=== PATIENT | male | born 1980 | race Caucasian/White ===

== ENCOUNTER → 2022-08-20 | Outpatient (CLI) | payer OTHER ==
--- NOTE | 2022-08-20 16:20 | P.SLEEP ---
History of Present Illness DATE: 08/20/2022 CONSULTATION/NEW PATIENT EVALUATION HISTORY OF PRESENT ILLNESS/SLEEP-WAKE EVALUATION: 42 year old gentleman had been evaluated in the sleep center for obstructive sleep apnea hypopnea syndrome. Patient had home sleep apnea test on 06/16/2022 in another institution which showed apnea-hypopnea index 70.71. SLEEP SCHEDULE: Usually sleep schedule from 4 AM until 12:30 PM on working days, patient works at afternoon shift and from 4 AM until 6 PM on days off. FALLING ASLEEP: Patient has difficulties with falling asleep, although no TV in bedroom. DURING SLEEP: Patient has loud snoring, witnessed episodes of stop breathing during the sleep, multiple awakenings with the gasping for air and choking up to 20 times per night's with up to 5 episodes of nocturia. No history of hypnogogical hallucinations, sleep paralysis, or cataplexy. DURING THE DAY/WAKE STATE: In the morning patient wake up tired, has difficulties to pay attention, falling asleep during the day. Russell sleepiness scale is 9. Usually patient doesn't take additional naps. PAST MEDICAL HISTORY: Hypertension, depression. PAST SURGICAL HISTORY: Left clavicle fracture. MEDICATIONS: Atenolol, Wellbutrin, Lexapro. SOCIAL HISTORY: Negative for smoking or using alcohol. FAMILY HISTORY: Heart problems, stroke. REVIEW OF SYSTEMS: Loud snoring, multiple awakenings from sleep. No fevers. No double vision. No recent chest pain. No shortness of breath. No abdominal pain. No bleeding episodes. No blood in urine. No seizure episodes. PHYSICAL EXAMINATION: GENERAL: A pleasant patient without any distress. VITAL SIGNS: BP 99/61 , HR 74 , RR 16 , weight 147.2 pounds, height 6 foot 2 inches, body mass index 55.8 . HEENT: PERRLA, EOMI. Evaluation of oropharynx showed tongue protrudes midline, low position of soft palate Mallampati 3. NECK: Supple. No JVD. Thyroid is not palpable. 20 inches in circumference. LUNGS: Clear to percussion and to auscultation. Good air exchange. No wheezing or rhonchi. HEART: S1, S2 regular. No murmurs, gallops or rubs. ABDOMEN: Soft and nontender. Bowel sounds are present. No organomegaly appreciated. Obese EXTREMITIES: No clubbing or cyanosis. MUSIC PASTOR: Awake, alert, and oriented x3. Cranial nerves 2 to 7 intact. There is no fasciculation or atrophy noted. No focal deficits observed. ASSESSMENT: 1. Severe obstructive sleep apnea hypopnea syndrome by results of home sleep apnea test which was done in another institution. Apnea-hypopnea index 70.71. 2. Morbid obesity, BMI 55.8. 3. History of hypertension. 4. History of depression. 5 status post the surgical treatment for left clavicle fracture. PLAN: 1. CPAP/BiPAP titration if sleep study confirms obstructive sleep apnea- hypopnea syndrome. 2. Watching and losing weight. 3. Preferable position during sleep on the side. 4. No driving if patient feels any sleepiness. Patient is aware of civil and c riminal liability for unsafe driving. 5. Sleep hygiene with regular sleep time for at least 7.5-8 hours. Thank you very much for referring this patient for consultation. Sincerely, Armando Carvajal MD, PhD, FAASM. Diplomat of [place] [employer], Sleep Medicine Board by [employer] [employer] [employer] Intern of [facility] [place] Sleep Note - Sleep Note Sleep Note: Temperature: Pulse Rate: Respiratory Rate: Blood Pressure: SpO2: Height: Weight: BMI: Neck Circumference:
== END ==
LOC: 3 N SLEEP 15:41
PROVIDERS: ATTEND Internal Medicine
DX: G47.30 Sleep apnea, unspecified (principal); G47.33 Obstructive sleep apnea (adult) (pediatric); E66.01 Morbid (severe) obesity due to excess calories; I10 Essential (primary) hypertension; F32.A Depression, unspecified; Z99.89 Dependence on other enabling machines and devices; Z98.890 Other specified postprocedural states; Z68.43 Body mass index [BMI] 50.0-59.9, adult
CPT/HCPCS: 99211

== ENCOUNTER → 2023-10-07 | Outpatient (CLI) | payer OTHER | END | disposition home or self-care (01) | LOC: LABPRL 12:00 | PROVIDERS: ATTEND Nurse Practitioner Family | DX: Z00.00 Encounter for general adult medical examination without abnormal findings (principal); Z13.1 Encounter for screening for diabetes mellitus; Z13.228 Encounter for screening for other metabolic disorders; Z13.29 Encounter for screening for other suspected endocrine disorder; Z13.220 Encounter for screening for lipoid disorders; E55.9 Vitamin D deficiency, unspecified; Z68.43 Body mass index [BMI] 50.0-59.9, adult | CPT/HCPCS: 80053; 80061; 82306; 83036; 83525; 84443; 85025; 86141 ==